=== PATIENT | male | born 1980 ===

== ENCOUNTER 2021-01-28 17:08 | Emergency (ER) | payer OTHER ==
[2021-01-28 17:36] VITALS: BP 136/80; PULSE 75
[2021-01-28 18:08] LABS: CHLORIDE,CL 104 mmol/L (98-107); SODIUM,NA 142 mmol/L (136-145)
--- NOTE | 2021-01-28 18:19 | EDM.PDOC ---
Scribed by Sirena Reyes 01/28/21 [id number] for Caleb Dillon MD ED HPI GENERAL MEDICAL PROBLEM - General Chief Complaint: General Stated Complaint: FELL ON LEFT SIDE, LIGHT HEADED, PAIN, 93/50 BP Time Seen by Provider: 01/28/21 17:21 Source of Information: Reports: Patient, RN, RN Notes Reviewed History Limitations: Reports: No Limitations - History of Present Illness INITIAL COMMENTS - FREE TEXT/NARRATIVE: Patient presents to ED by POV with complaints of fall about 3 days after helping his friend with his horse. Pain 8/10 at around his upper left chest related to fall. He has been doing Ibuprofen regularly with last dose being this afternoon around 13:00-14:00. He comes in because at his kitchen sink, he started getting dizzy and having sweats and so ultimately checked his blood pressure and saw that it was 90s/50s and was concerned something is wrong. Onset Date: 01/25/21 Duration: Constant, Resolved Prior to Arrival Location: Reports: Chest Quality: Reports: Ache Severity: Moderate Improves with: Reports: None Worsens with: Reports: None Associated Symptoms: Reports: No Other Symptoms Left Upper Chest Pain Score (Numeric/FACES): 8 - Related Data Allergies Allergy/AdvReac Type Severity Reaction Status Date / Time No Known Allergies Allergy Verified 07/17/16 09:37 Home Meds: Home Meds Losartan [Cozaar] 25 mg PO DAILY 07/17/16 [History] Phentermine HCl 1 tab PO DAILY 01/28/21 [History] Past Medical History Cardiovascular History: Reports: Hypertension Social & Family History - Caffeine Use Caffeine Use: Reports: None - Living Situation & Occupation Occupation: Employed ED ROS GENERAL - Review of Systems Review Of Systems: Comprehensive ROS is negative, except as noted in HPI. ED EXAM, GENERAL - Physical Exam Exam: See Below Exam Limited By: No Limitations General Appearance: Alert, WD/WN, No Apparent Distress Eye Exam: Bilateral Eye: EOMI, Normal Inspection, PERRL Ears: Normal External Exam, Hearing Grossly Normal Nose: Normal Inspection, Normal Mucosa, No Blood Throat/Mouth: Normal Inspection, Normal Lips, Normal Teeth, Normal Gums, Normal Oropharynx, Normal Voice, No Airway Compromise Head: Atraumatic, Normocephalic Neck: Normal Inspection, Supple, Non-Tender, Full Range of Motion Respiratory/Chest: No Respiratory Distress, Lungs Clear, Normal Breath Sounds, No Accessory Muscle Use, Other (Left chest wall tenderness medial to left breast with no visible swelling, bruising, or deformity.). No: Crackles, Rales, Rhonchi, Wheezing Cardiovascular: Normal Peripheral Pulses, Regular Rate, Rhythm, No Edema, No Gallop, No JVD, No Murmur, No Rub GI/Abdominal: Normal Bowel Sounds, Soft, Non-Tender Back Exam: Normal Inspection Extremities: Normal Inspection, Normal Range of Motion, Non-Tender, Normal Capillary Refill, No Pedal Edema Neurological: Alert, Oriented, CN II-XII Intact, Normal Cognition, Normal Gait, No Motor/Sensory Deficits Psychiatric: Normal Affect, Normal Mood Skin Exam: Warm, Intact, Normal Color, No Rash, Diaphoretic (on arrival, quickly resolved) #1 Interpretation EKG Date: 01/28/21 Time: 17:42 Rhythm: Other (sinus rhythm) Rate (Beats/Min): 75 [place]: Normal P-Wave: Present QRS: Normal ST-T: Normal QT: Normal Course - Vital Signs Last Recorded V/S: Last Vital Signs Temp 96.2 F L 01/28/21 17:20 Pulse 75 01/28/21 17:20 Resp 16 01/28/21 17:20 BP 136/80 01/28/21 17:20 Pulse Ox 100 01/28/21 17:20 Orthostatic Blood Pressure [ 122/87 Standing] Orthostatic Blood Pressure [ 118/84 Sitting] Orthostatic Blood Pressure [ 130/84 Supine] - Orders/Labs/Meds Orders: Active Orders 24 hr Category Date Time Status EKG 12 Lead [EKG Documentation Completion] [RC] STAT Care 01/28/21 17:31 Active Orthostatic Vital Signs [RC] ASDIRECTED Care 01/28/21 17:32 Active Ribs 2V w Chest Lt [CR] Stat Exams 01/28/21 17:33 Taken Labs: Laboratory Tests 01/28/21 01/28/21 01/28/21 Range/Units 17:34 17:40 17:40 WBC 7.5 (5.0-10.0) 10^3/uL RBC 4.63 (4.6-6.2) 10^6/uL Hgb 15.3 (14.0-18.0) g/dL Hct 42.5 (40.0-54.0) % MCV 91.8 (80-100) fL MCH 33.0 (27.0-34.0) pg MCHC 36.0 H (33.0-35.0) g/dL Plt Count 187 (150-450) 10^3/uL Neut % (Auto) 62.6 (42.2-75.2) % Lymph % (Auto) 26.1 (20.5-50.1) % [place] % (Auto) 6.9 (2-8) % Eos % (Auto) 4.0 H (1.0-3.0) % Baso % (Auto) 0.4 (0.0-1.0) % Sodium 142 (136-145) mmol/L Potassium 4.0 (3.5-5.1) mmol/L Chloride 104 (98-107) mmol/L Carbon Dioxide 28 (21-32) mmol/L Anion Gap 14.0 H (7-13) mEq/L BUN 17 (7-18) mg/dL Creatinine 0.87 (0.70-1.30) mg/dL Est Cr Clr Drug Dosing 141.34 mL/min Estimated GFR (MDRD) > 60 BUN/Creatinine Ratio 19.5 (No establ ref range) Glucose 125 H (70-99) mg/dL Calcium 8.5 (8.5-10.1) mg/dL Magnesium 2.2 (1.8-2.4) mg/dL Total Bilirubin 1.4 H (0.2-1.0) mg/dL AST 20 (15-37) U/L ALT 37 (16-63) U/L Alkaline Phosphatase 65 (46-116) U/L Troponin I High Sens < 4 (<=76) pg/mL Total Protein 7.5 (6.4-8.2) g/dL Albumin 4.0 (3.4-5.0) g/dL Globulin 3.5 Albumin/Globulin Ratio 1.1 Urine Color Yellow (YELLOW) Urine Appearance Clear (CLEAR) Urine pH 6.0 (5.0-9.0) Ur Specific [place] >= 1.030 (1.005-1.030) Urine Protein Trace H (NEGATIVE) Urine Glucose (UA) Negative (NEGATIVE) Urine Ketones Negative (NEGATIVE) Urine Occult Blood Negative (NEGATIVE) Urine Nitrite Negative (NEGATIVE) Urine Bilirubin Negative (NEGATIVE) Urine Urobilinogen 1.0 (0.2-1.0) mg/dL Ur Leukocyte Esterase Negative (NEGATIVE) Urine RBC 0-5 (0-5) /HPF Urine WBC 5-10 H (0-5/HPF) /HPF Ur Epithelial Cells Many H (NOT SEEN) /HPF Calcium Oxalate Crystal Few H (NOT SEEN) /HPF Urine Bacteria Few (0-FEW/HPF) /HPF Urine Mucus Many H (NOT SEEN) /LPF - Radiology Interpretation Free Text/Narrative:: XR Left Ribs: no acute fractures, see rad. report. Departure - Departure Time of Disposition: 18:17 Disposition: Home, Self-Care 01 Condition: Good Clinical Impression: Dehydration, Vasovagal near syncope - Discharge Information *PRESCRIPTION DRUG MONITORING PROGRAM REVIEWED*: Not Applicable *COPY OF PRESCRIPTION DRUG MONITORING REPORT IN PATIENT ASIA: Not Applicable Instructions: Dehydration, Adult, [id number], Near-Syncope, [id number] Forms: ED Department Discharge Additional Instructions: Drink plenty of water or Gatorade. Avoid prolonged heat exposure. Monitor your blood pressure and follow up in clinic with your doctor to see if a lower dose of medication is indicated. Return to ER if worse at any time, or if any new or concerning symptoms develop. Sepsis Event Note (ED) - Focused Exam Vital Signs: Vital Signs Temp Pulse Resp BP Pulse Ox 01/28/21 17:20 96.2 F L 75 16 136/80 100 - My Orders Last 24 Hours: My Active Orders 01/28/21 17:31 EKG 12 Lead [EKG Documentation Completion] [RC] STAT 01/28/21 17:32 Orthostatic Vital Signs [RC] ASDIRECTED 01/28/21 17:33 Ribs 2V w Chest Lt [CR] Stat - Assessment/Plan Last 24 Hours: My Active Orders 01/28/21 17:31 EKG 12 Lead [EKG Documentation Completion] [RC] STAT 01/28/21 17:32 Orthostatic Vital Signs [RC] ASDIRECTED 01/28/21 17:33 Ribs 2V w Chest Lt [CR] Stat I have read and agree with the documentation that has been completed regarding this visit. By signing this record, I attest that the documentation was completed in my physical presence and is an accurate record of the encounter.
--- NOTE | 2021-01-28 19:25 | CR ---
PROCEDURE INFORMATION: Exam: XR Left Ribs with PA Chest Exam date and time: 01/28/2021 5:53 PM Age: 40 years old Clinical indication: Other: Mid chest anterior pain; Additional info: Left chest wall blunt injury, pain, near syncope TECHNIQUE: Imaging protocol: XR Left ribs with PA chest. Views: 3 views COMPARISON: CR Chest 2V 07/17/2016 10:38 AM FINDINGS: Lungs: Unremarkable. No consolidation. Pleural spaces: Unremarkable. No pleural effusion. No pneumothorax. Heart/Mediastinum: Unremarkable. No cardiomegaly. Bones/joints: Unremarkable. IMPRESSION: Normal chest and left rib series.
== END 2021-01-28 18:24 | disposition home or self-care (01) ==
LOC: DL.ED 17:08
DX: R55 Syncope and collapse (principal); E86.0 Dehydration; I10 Essential (primary) hypertension; Z79.899 Other long term (current) drug therapy
CPT/HCPCS: 36415; 71101-LT; 80053; 81001; 83735; 84484; 85025; 93005; 99284-25